=== PATIENT | male | born 1975 | race Caucasian/White ===

== ENCOUNTER 2018-06-14 09:01 | Emergency (ER) | payer BC ==
[2018-06-14 09:13] VITALS: O2SAT 100
[2018-06-14 09:18] VITALS: BMI 16.5
[2018-06-14 10:11] LABS: BASO # 0.01 K/mm3 (0.0-2.0); BASO % 0.3 % (0.0-3.0); EOS # 0.1 (0.0-0.7); EOS % 1.9 % (1.5-5.0); HEMOGLOBIN 14.8 g/dL (14.0-18.0); LYMPH # 1.3 (1.2-3.4); LYMPH % 41.6 % (22.0-35.0); MEAN CORPUSCULAR HEMOGLOBIN 25.2 pg (25.0-35.0); MEAN CORPUSCULAR HGB CONC 33.2 g/dl (31.0-37.0); MEAN PLATELET VOLUME 9.9 fl (7.0-11.0); MONO # 0.3 (0.1-0.6); MONO % 10.6 % (1.0-6.0); RBC 5.87 10^6/uL (3.5-6.1); RED CELL DISTRIBUTION WIDTH 13.9 % (11.5-14.5); WHITE BLOOD COUNT 3.2 10^3/uL (4.5-11.0)
[2018-06-14 10:18] LABS: ALB/GLOB RATIO 1.4 (1.1-1.8); ALBUMIN 4.4 g/dL (3.0-4.8); ALT/SGPT 16 U/L (7-56); AST/SGOT 29 U/L (17-59); BLOOD UREA NITROGEN 14 mg/dL (7-21); CALCIUM 9.5 mg/dL (8.4-10.5); GFR NON-AFRICAN AMERICAN > 60
--- NOTE | 2018-06-14 10:21 | RAD ---
Date of service: 06/14/2018 HISTORY: chest pain COMPARISON: 01/23/2016 FINDINGS: LUNGS: No active pulmonary disease. PLEURA: No significant pleural effusion identified, no pneumothorax apparent. CARDIOVASCULAR: No aortic atherosclerotic calcification present. Normal cardiac size. No pulmonary vascular congestion. OSSEOUS STRUCTURES: No significant abnormalities. VISUALIZED UPPER ABDOMEN: Normal. OTHER FINDINGS: None. IMPRESSION: No active disease.
[2018-06-14 10:26] LABS: INR 1.11; PARTIAL THROMBOPLASTIN TIME 34.8 Seconds (26.9-38.3); PROTHROMBIN TIME 12.5 SECONDS (9.4-12.5)
[2018-06-14 10:30] LABS: TROPONIN I < 0.01 ng/mL
[2018-06-14 10:31] LABS: D DIMER < 200 ng/mlDDU (0-243)
[2018-06-14 11:03] LABS: PH,URINE 7.5 (4.7-8.0); URINE BILIRUBIN NEGATIVE (NEGATIVE); URINE BLOOD NEGATIVE (NEGATIVE); URINE GLUCOSE (UA) NEGATIVE (NEGATIVE); URINE LEUKOCYTE ESTERASE NEGATIVE Leu/uL (NEGATIVE); URINE PROTEIN NEGATIVE mg/dL (<30 mg/dL); URINE UROBILINOGEN 0.2 E.U./dL (<1 E.U./dL)
[2018-06-14 11:05] LABS: URINE APPEARANCE CLEAR (CLEAR); URINE COLOR YELLOW (YELLOW)
--- NOTE | 2018-06-14 11:08 | ED PDOC ---
Arrival/HPI - General Chief Complaint: Chest Pain Time Seen by Provider: 06/14/18 09:08 Historian: Patient - History of Present Illness Narrative History of Present Illness (Text): 06/14/18 11:03 43yo male with no pmhx who present with complaint of intermittent chest pain x weeks. states he saw his PMD for same complaint and nothing was done. states he decided to come to ED today for the pain. Reports substernal chest pain. Denies relieving/exacerbating factors. Denies cough, fever, chills, nausea, vomiting, diaphoresis, LE edema, calf pain, recent travel, sick contact, any other complaint. Past Medical History - Provider Review Nursing Documentation Reviewed: Yes - Infectious Disease Hx of Infectious Diseases: None - Tetanus Immunization Tetanus Immunization: Unknown - Psychiatric Hx Substance Use: No - Anesthesia Hx Anesthesia: No Hx Anesthesia Reactions: No Hx Malignant Hyperthermia: No Family/Social History - Physician Review Nursing Documentation Reviewed: Yes Family/Social History: Unknown Family HX Smoking Status: Smoker Currrent Status Unknown Hx Alcohol Use: No Hx Substance Use: No Allergies/Home Meds Allergies/Adverse Reactions: Allergies No Known Allergies Allergy (Verified 08/09/15 16:34) Home Medications: Home Meds Medication Instructions Recorded Confirmed RX: No Known Home Med 01/23/16 01/23/16 Review of Systems - Physician Review All systems were reviewed & negative as marked: Yes - Review of Systems Constitutional: Normal Eyes: Normal ENT: Normal Respiratory: Cough Cardiovascular: Normal Gastrointestinal: Normal Genitourinary Male: Normal Musculoskeletal: Normal Skin: Normal Neurological: Normal Endocrine: Normal Hemo/Lymphatic: Normal Psychiatric: Normal Physical Exam Vital Signs Reviewed: Yes Vital Signs Temp Pulse Resp BP Pulse Ox 06/14/18 09:05 100.1 F H 64 14 146/91 H 100 Temperature: Febrile Blood Pressure: Normal Pulse: Regular Respiratory Rate: Normal Appearance: Positive for: Well-Appearing, Non-Toxic, Comfortable Pain Distress: None Mental Status: Positive for: Alert and Oriented X 3 - Systems Exam Head: Present: Atraumatic, Normocephalic Pupils: Present: PERRL Extroacular Muscles: Present: EOMI Conjunctiva: Present: Normal Mouth: Present: Moist Mucous Membranes Neck: Present: Normal Range of Motion Respiratory/Chest: Present: Clear to Auscultation, Good Air Exchange. No: Respiratory Distress, Accessory Muscle Use, Wheezes, Decreased Breath Sounds, Rales, Retracting, Rhonchi, Tachypneic Cardiovascular: Present: Regular Rate and Rhythm, Normal S1, S2. No: Murmurs Abdomen: No: Tenderness, Distention, Peritoneal Signs Back: Present: Normal Inspection Upper Extremity: Present: Normal Inspection. No: Cyanosis, Edema Lower Extremity: Present: Normal Inspection. No: Edema Neurological: Present: GCS=15, CN II-XII Intact, Speech Normal Skin: Present: Warm, Dry, Normal Color. No: Rashes Psychiatric: Present: Alert, Oriented x 3, Normal Insight, Normal Concentration Medical Decision Making ED Course and Treatment: 06/15/18 19:49 PT present to ED for stated history. He was not in any distress. He was febrile on presentation. EKG NSR @ 65bpm Labs was ordered, reviewed and leukopenia was noted Rapid flu was negative Pt's CE was negative. He have no Cardiac risk factor. All result was DW the pt and he was referred to a Payroll Human Resources Assistant - Lab Interpretations Lab Results: PT 12.5 SECONDS (9.4-12.5) 06/14/18 09:50 INR 1.11 06/14/18 09:50 APTT 34.8 Seconds (26.9-38.3) 06/14/18 09:50 D-Dimer, Quantitative < 200 ng/mlDDU (0-243) 06/14/18 09:50 Troponin I < 0.01 ng/mL 06/14/18 09:50 Total Bilirubin 0.6 mg/dL (0.2-1.3) 06/14/18 09:50 AST 29 U/L (17-59) 06/14/18 09:50 ALT 16 U/L (7-56) 06/14/18 09:50 Alkaline Phosphatase 60 U/L (38-126) 06/14/18 09:50 Total Protein 7.6 g/dL (5.8-8.3) 06/14/18 09:50 Albumin 4.4 g/dL (3.0-4.8) 06/14/18 09:50 Globulin 3.1 gm/dL 06/14/18 09:50 Albumin/Globulin Ratio 1.4 (1.1-1.8) 06/14/18 09:50 - RAD Interpretation Radiology Orders: 06/14/18 09:32 CHEST PORTABLE [RAD] Stat - Medication Orders Current Medication Orders: Discontinued Medications Aspirin (Aspirin) 325 mg PO STAT STA Stop: 06/14/18 09:33 Last Admin: 06/14/18 09:57 Dose: 325 mg Disposition/Present on Arrival - Present on Arrival Any Indicators Present on Arrival: No History of DVT/PE: No History of Uncontrolled Diabetes: No Urinary Catheter: No History of Decub. 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
[2018-06-14 11:28] VITALS: BP 128/88; PULSE 67; RESP 18; TEMP 97.9
--- NOTE | 2018-06-14 20:23 | CARD ---
APPROVED REPORT Date of service: 06/14/2018 EKG Measurement Heart [id number] <Conclusion> Normal sinus rhythm Normal ECG
== END 2018-06-14 11:28 | disposition home or self-care (01) ==
LOC: ED 09:01
DX: R07.89 Other chest pain (principal); B34.9 Viral infection, unspecified